=== PATIENT | female | born 1940 | race Caucasian/White ===

== ENCOUNTER → 2017-09-17 | Outpatient (CLI) | payer MEDICARE | LOC: RAD 02:08 | DX: Z12.31 Encounter for screening mammogram for malignant neoplasm of breast (principal) ==

== ENCOUNTER → 2018-10-07 | Outpatient (CLI) | payer MEDICARE | LOC: RAD 01:06 | DX: Z12.31 Encounter for screening mammogram for malignant neoplasm of breast (principal) ==

== ENCOUNTER → 2020-05-06 | Outpatient (CLI) | payer MEDICARE | LOC: BC 12:36 | DX: Z12.31 Encounter for screening mammogram for malignant neoplasm of breast (principal) ==